=== PATIENT | female | born 1945 | race Caucasian/White ===

== ENCOUNTER 2020-09-11 14:10 | Emergency (ER) | payer OTHER ==
[2020-09-11 14:26] VITALS: BP 178/89; PULSE 71; TEMP 97.7; BMI 23.7
[2020-09-11] MEDS ORDERED: SODIUM CHLORIDE 1,000 ML IV SCH (15:45)
[2020-09-11 16:23] LABS: BASO % 1.9 % (0-2.0); HEMATOCRIT 38.4 % (32.4-45.2); HEMOGLOBIN 12.4 GM/dL (10.7-15.3); LYMPH % 30.2 % (8-40); MCH 30.5 pg (25.7-33.7); MCHC 32.3 g/dl (32.0-36.0); MEAN CELL VOLUME 94.4 fl (80-96); MEAN PLT VOLUME 9.9 fl (7.5-11.1); MONO % 5.9 % (3.8-10.2); PLATELET COUNT 274 K/MM3 (134-434); RBC 4.07 M/mm3 (3.60-5.2); RDW 13.6 % (11.6-15.6); WHITE BLOOD COUNT 8.5 K/mm3 (4.0-10.0)
[2020-09-11 16:30] LABS: INR 1.08 (0.83-1.09)
[2020-09-11 16:33] LABS: ACTIVATED PTT 31.6 SECONDS (25.2-36.5)
[2020-09-11 16:47] LABS: CHLORIDE 98 mmol/L (98-107); POTASSIUM 4.2 mmol/L (3.5-5.1); SODIUM 135 mmol/L (136-145)
[2020-09-11 16:50] LABS: ALBUMIN 4.3 g/dl (3.4-5.0); ANION GAP 7 MMOL/L (8-16); BLOOD UREA NITROGEN 11.1 mg/dL (7-18); CALCIUM 9.6 mg/dL (8.5-10.1); CO2 30 mmol/L (21-32); GLUCOSE,RANDOM 84 mg/dL (74-106)
[2020-09-11] MEDS ORDERED: FLUORESCEIN NA 1 EA STRIP OD ONE (16:52)
[2020-09-11] MEDS ORDERED: TETRACAINE 0.5% HCL 0.6ML DROPPER.BOTTLE OD ONE (16:52)
[2020-09-11 16:53] LABS: CHOLESTEROL 149 mg/dL (50-200); CREATININE 0.5 mg/dL (0.55-1.3); SGOT/AST 20 U/L (15-37); SGPT/ALT 22 U/L (13-61)
[2020-09-11 16:54] LABS: BILIRUBIN,TOTAL 0.4 mg/dL (0.2-1); LDL CHOLESTEROL (ONLY SJRH) 69 mg/dL (5-100); TRIGLYCERIDES 144 mg/dL (0-150)
[2020-09-11] MEDS ORDERED: FLUORESCEIN NA 1 EA STRIP ONE (16:54)
[2020-09-11] MEDS ORDERED: TETRACAINE 0.5% OPHTH SOLN 2 ML BOTTLE ONE (16:54)
[2020-09-11 16:55] LABS: ALK PHOS 71 U/L (45-117); TOT PROT 8.4 g/dl (6.4-8.2)
[2020-09-11 16:56] LABS: HDL CHOLESTEROL 57 mg/dL (40-60)
[2020-09-11 19:54] LABS: URINE APPEARANCE CLEAR; URINE BILIRUBIN NEGATIVE (NEGATIVE); URINE COLOR YELLOW; URINE GLUCOSE (UA) NEGATIVE (NEGATIVE); URINE KETONE NEGATIVE (NEGATIVE); URINE LEUK ESTERASE NEGATIVE (NEGATIVE); URINE NITRITE NEGATIVE (NEGATIVE); URINE PROTEIN NEGATIVE (NEGATIVE); URINE UROBILINOGEN 0.2 mg/dL (0.2-1.0)
[2020-09-12] MEDS ORDERED: predniSONE 20 MG TABLET (UD) PO ONE (10:19)
== END 2020-09-11 17:56 | disposition home or self-care (01) ==
LOC: JER 14:10
DX: B02.21 Postherpetic geniculate ganglionitis (principal)
CPT/HCPCS: 36415; 70450-TC; 80053; 80061; 81003; 82550; 83721; 84484; 85025; 85610; 85730; 86850; 86900; 86901; 93005; 93010; 99285-25

== ENCOUNTER 2021-05-15 11:18 | Day surgery (SDC) | payer OTHER ==
[2021-05-15] MEDS: CELECOXIB 200 MG CAPSULE PO ONE ×2 (07:25→16:39)
[2021-05-15 08:18] VITALS: BMI 23.8
[~2021-05-15 11:18] MED LIST: BUPIVACAINE HCL/PF 0.5% (5 MG/ML) 30 ML VIAL IJ ONE; BUPIVACAINE HCL/PF 0.5% (5MG/ML) 10 ML VIAL ONE; CEFAZOLIN 2 GM in DEXTROSE 5%-WATER - 50 ML IVPB ONE; DEXAMETHASONE SOD PHOSPHATE 10 MG/1 ML VIAL ONE; DEXAMETHASONE SOD PHOSPHATE 4 MG/1 ML VIAL ONE; GLYCOPYRROLATE 0.2 MG/1 ML VIAL ONE; LACTATED RINGERS SOLUTION 1,000 ML IV SCH; MAG HYDROX/AL HYDROX/SIMETH 30 ML UNIT-DOSE CUP PO PRN; MAGNESIUM HYDROX 2400MG/30ML ORAL SUSPENSION 30 ML CUP PO PRN; MIDAZOLAM HCL 2 MG/2 ML SINGLE DOSE VIAL ONE; ONDANSETRON 4 MG/2 ML VIAL IVPUSH PRN; PROPOFOL 20 ML ONE; TRANEXAMIC ACID 1000 MG/10 ML VIAL IVPUSH ONE; VANCOMYCIN 1,000 MG VIAL (RESTRICTED TO ID ONLY) ONE; ZOLPIDEM TARTRATE 5 MG TABLET PO PRN; ceFAZolin SODIUM 1 GM VIAL ONE; ePHEDrine SULFATE 50 MG/1 ML AMPULE ONE
[2021-05-15] MEDS ORDERED: oxyCODONE HCL 5 MG TABLET PO PRN (11:35)
[2021-05-15] MEDS ORDERED: ONDANSETRON 4 MG/2 ML VIAL IVPUSH PRN (11:35)
[2021-05-15] MEDS ORDERED: ACETAMINOPHEN 1000 MG/100 ML VIAL (NON FORMULARY) IVPB ONE (11:35)
[2021-05-15] MEDS ORDERED: LACTATED RINGERS SOLUTION 1,000 ML IV SCH (11:45)
[2021-05-15] MEDS: CEFAZOLIN 2 GM/D5W 2 GM/50 ML ML IVPB SCH (17:39)
[2021-05-15] MEDS: SENNOSIDES/DOCUSATE COMBO (SENNA PLUS) TABLET (UD) PO SCH (21:06)
[2021-05-15] MEDS: oxyCODONE HCL 10 MG SUSTAINED ACTING TABLET PO SCH (21:07)
[2021-05-16] MEDS: CEFAZOLIN 2 GM/D5W 2 GM/50 ML ML IVPB SCH ×2 (01:33→10:20)
[2021-05-16 08:04] LABS: HEMOGLOBIN 9.6 GM/dl (10.7-15.3); MCH 31.9 pg (25.7-33.7); MCHC 34.3 g/dl (32.0-36.0); MEAN CELL VOLUME 93.1 fl (80-96); MEAN PLT VOLUME 9.8 fl (7.5-11.1); PLATELET COUNT 185 10^3/uL (134-434); RBC 3.01 M/mm3 (3.60-5.2); RDW 13.1 % (11.6-15.6); WHITE BLOOD COUNT 10.8 K/mm3 (4.0-10.8)
[2021-05-16] MEDS ORDERED: BENZOCAINE/MENTH/CETYLPYRD CL 1 EACH LOZENGE MM PRN (08:12)
[2021-05-16] MEDS: metoPROLOL SUCCINATE 25 MG TAB.SR.24H (FP) PO SCH (10:15)
[2021-05-16] MEDS: MULTIVITAMINS (DAILY MVI) TABLET (FP) PO SCH (10:15)
[2021-05-16] MEDS: SENNOSIDES/DOCUSATE COMBO (SENNA PLUS) TABLET (UD) PO SCH ×2 (10:15→21:40)
[2021-05-16] MEDS: oxyCODONE HCL 10 MG SUSTAINED ACTING TABLET PO SCH ×2 (10:16→21:41)
[2021-05-16] MEDS: PANTOPRAZOLE 40 MG TABLET PO SCH (10:16)
[2021-05-16] MEDS: oxyCODONE HCL 5 MG TABLET PO PRN ×2 (13:49→17:53)
[2021-05-16] MEDS ORDERED: RIVAROXABAN 20 MG TABLET PO SCH (22:00)
[2021-05-17] MEDS: oxyCODONE HCL 5 MG TABLET PO PRN ×2 (06:15→08:44)
[2021-05-17 08:06] LABS: HEMOGLOBIN 9.6 GM/dl (10.7-15.3); MCH 31.9 pg (25.7-33.7); MEAN CELL VOLUME 96.6 fl (80-96); MEAN PLT VOLUME 10.1 fl (7.5-11.1); PLATELET COUNT 192 10^3/uL (134-434); WHITE BLOOD COUNT 10.1 K/mm3 (4.0-10.8)
[2021-05-17] MEDS: SENNOSIDES/DOCUSATE COMBO (SENNA PLUS) TABLET (UD) PO SCH (09:14)
[2021-05-17] MEDS: MULTIVITAMINS (DAILY MVI) TABLET (FP) PO SCH (09:15)
[2021-05-17] MEDS: metoPROLOL SUCCINATE 25 MG TAB.SR.24H (FP) PO SCH (09:15)
[2021-05-17] MEDS: PANTOPRAZOLE 40 MG TABLET PO SCH (09:15)
[2021-05-17 09:20] VITALS: BP 106/55; PULSE 76; TEMP 98
== END 2021-05-17 11:42 | disposition home health service (06) ==
LOC: FASUSAT 11:18 → FM/S 13:52 → UNDOADMIN 13:52 → FM/S 22:06 → FASUSAT 05-17 11:42
PROVIDERS: ATTEND Orthopaedic Surgery
PROC: 8E0W0CZ Robotic Assisted Procedure of Trunk Region, Open Approach (ICD-10-PCS; 2021-05-15)
PROC: 0SR9019 Replacement of Right Hip Joint with Metal Synthetic Substitute, Cemented, Open Approach (ICD-10-PCS; principal; 2021-05-15 10:19)
DX: M16.11 Unilateral primary osteoarthritis, right hip (principal)
CPT/HCPCS: 27130; C1776; S2900; 36415; 73502-TC-RT-FY; 85027; 94760; 97010-GP; 97116-GP; 97163-GP; J0131; J1100

== ENCOUNTER 2021-08-03 04:44 | Day surgery (SDC) | payer OTHER ==
[2021-08-02 08:59] VITALS: BMI 23.3
[2021-08-03] MEDS ORDERED: ACETAMINOPHEN INJECTION 100 ML IVPB ONE (07:10)
[2021-08-03] MEDS ORDERED: DEXMEDETOMIDINE HCL 200 MCG/2 ML IVPB ONE (07:10)
[2021-08-03] MEDS ORDERED: ROCURONIUM BROMIDE 50 MG/5 ML SYRINGE ONE (07:28)
[2021-08-03] MEDS ORDERED: KETAMINE HCL 200 MG/20 ML VIAL ONE (07:28)
[2021-08-03] MEDS ORDERED: fentaNYL CITRATE 250 MCG/5 ML VIAL ONE (07:29)
[2021-08-03] MEDS ORDERED: PROPOFOL 20 ML ONE ×2 (07:29)
[2021-08-03] MEDS ORDERED: BUPIVACAINE LIPOSOME/PF (EXPAREL) 266 MG/20 ML VIAL ONE (07:30)
[2021-08-03] MEDS ORDERED: BUPIVACAINE HCL/PF 0.5% (5MG/ML) 10 ML VIAL ONE (07:30)
[2021-08-03] MEDS ORDERED: MIDAZOLAM HCL 2 MG/2 ML SINGLE DOSE VIAL ONE ×2 (07:32)
[2021-08-03] MEDS ORDERED: ceFAZolin SODIUM 1 GM VIAL IVPB ONE (09:11)
[2021-08-03] MEDS ORDERED: NEOSTIGMINE METHYLSULFATE 0.5 MG/ML - 10 ML MDV ONE (09:26)
[2021-08-03] MEDS ORDERED: LIDOCAINE HCL/PF 2% SDV 5ML VIAL ONE (09:55)
[2021-08-03 17:11] VITALS: BP 143/83; PULSE 60; TEMP 97
== END 2021-08-03 17:11 | disposition home or self-care (01) ==
LOC: JASU-SURG 04:44
PROVIDERS: ATTEND Surgery
PROC: 0YQA4ZZ Repair Bilateral Inguinal Region, Percutaneous Endoscopic Approach (ICD-10-PCS; principal; 2021-08-03 08:00)
DX: K40.20 Bilateral inguinal hernia, without obstruction or gangrene, not specified as recurrent (principal)
CPT/HCPCS: 94760; J0131

== ENCOUNTER 2021-09-16 13:53 | Emergency (ER) | payer OTHER ==
[2021-09-16 14:10] VITALS: BP 132/72; PULSE 61; TEMP 97; BMI 23.3
[2021-09-16] MEDS ORDERED: KETOROLAC TROMETHAMINE 15 MG/ML VIAL IVPUSH ONE (14:40)
[2021-09-16] MEDS ORDERED: SODIUM CHLORIDE 1,000 ML IV SCH (14:45)
[2021-09-16 15:16] LABS: BASO % 0.6 % (0-2.0); EOS % 1.1 % (0-4.5); HEMATOCRIT 34.9 % (32.4-45.2); HEMOGLOBIN 11.7 GM/dL (10.7-15.3); LYMPH % 23.3 % (8-40); MCH 29.9 pg (25.7-33.7); MCHC 33.4 g/dl (32.0-36.0); MEAN CELL VOLUME 89.5 fl (80-96); MEAN PLT VOLUME 8.9 fl (7.5-11.1); MONO % 6.6 % (3.8-10.2); NEUT % 68.4 % (42.8-82.8); PLATELET COUNT 242 10^3/uL (134-434); RDW 15.5 % (11.6-15.6); WHITE BLOOD COUNT 8.7 K/mm3 (4.0-10.0)
[2021-09-16 15:35] LABS: CHLORIDE 104 mmol/L (98-107); SODIUM 138 mmol/L (136-145)
[2021-09-16 15:37] LABS: ALBUMIN 3.6 g/dl (3.4-5.0); ANION GAP 4 MMOL/L (8-16); BLOOD UREA NITROGEN 14.6 mg/dL (7-18); CO2 31 mmol/L (21-32); LIPASE 191 U/L (73-393)
[2021-09-16] MEDS ORDERED: KETOROLAC TROMETHAMINE 15 MG/ML VIAL ONE (15:37)
[2021-09-16 15:40] LABS: CREATININE 0.5 mg/dL (0.55-1.3); SGPT/ALT 24 U/L (13-61)
[2021-09-16 15:41] LABS: SGOT/AST 19 U/L (15-37)
[2021-09-16 15:42] LABS: BILIRUBIN,TOTAL 0.3 mg/dL (0.2-1); TOT PROT 7.5 g/dl (6.4-8.2)
[2021-09-16 15:43] LABS: ALK PHOS 70 U/L (45-117)
[2021-09-16 15:51] LABS: GLUCOSE,RANDOM 104 mg/dL (74-106)
[2021-09-16 16:53] LABS: URINE APPEARANCE CLEAR; URINE BILIRUBIN NEGATIVE (NEGATIVE); URINE COLOR YELLOW; URINE GLUCOSE (UA) NEGATIVE (NEGATIVE); URINE KETONE NEGATIVE (NEGATIVE); URINE LEUK ESTERASE NEGATIVE (NEGATIVE); URINE NITRITE NEGATIVE (NEGATIVE); URINE PROTEIN NEGATIVE (NEGATIVE); URINE UROBILINOGEN 0.2 mg/dL (0.2-1.0)
== END 2021-09-16 20:45 | disposition home or self-care (01) ==
LOC: JER 13:53
PROC: 3E033GC Introduction of Other Therapeutic Substance into Peripheral Vein, Percutaneous Approach (ICD-10-PCS; principal; 2021-09-16)
DX: R10.32 Left lower quadrant pain (principal)
CPT/HCPCS: 36415; 71046-TC-FY; 74177-TC; 80053; 81003; 82550; 83690; 84484; 85025; 87086; 93005; 93010; 99285-25; Q9967

== ENCOUNTER 2023-08-26 06:54 | Day surgery (SDC) | payer OTHER ==
[2023-08-20 16:13] VITALS: BMI 23.8
[2023-08-26] MEDS ORDERED: LIDOCAINE HCL/PF 2% SDV 5ML VIAL ONE (08:15)
[2023-08-26] MEDS ORDERED: PROPOFOL 100 ML ONE (08:16)
[2023-08-26] MEDS ORDERED: MIDAZOLAM HCL 2 MG/2 ML SINGLE DOSE VIAL ONE (08:16)
[2023-08-26] MEDS ORDERED: ACETAMINOPHEN INJECTION 100 ML IVPB ONE (08:24)
[2023-08-26] MEDS ORDERED: ROPIVACAINE HCL 0.5% 30ML VIAL ONE (08:24)
[2023-08-26] MEDS ORDERED: CEFAZOLIN 2 GM in DEXTROSE 5%-WATER - 50 ML IVPB ONE (08:30)
[2023-08-26] MEDS ORDERED: TRANEXAMIC ACID 1000 MG/10 ML VIAL IVPUSH ONE (08:30)
[2023-08-26] MEDS ORDERED: ceFAZolin SODIUM 1 GM VIAL ONE (08:41)
[2023-08-26] MEDS ORDERED: VANCOMYCIN 1,000 MG VIAL (RESTRICTED TO ID ONLY) ONE (08:41)
[2023-08-26] MEDS ORDERED: ZOLPIDEM TARTRATE 5 MG TABLET PO PRN (09:42)
[2023-08-26] MEDS ORDERED: MAG HYDROX/AL HYDROX/SIMETH 30 ML UNIT-DOSE CUP PO PRN (09:42)
[2023-08-26] MEDS ORDERED: ONDANSETRON 4 MG/2 ML VIAL IVPUSH PRN (09:42)
[2023-08-26] MEDS ORDERED: LACTATED RINGERS SOLUTION 1,000 ML IV SCH (09:45)
[2023-08-26] MEDS ORDERED: TRANEXAMIC ACID 1000 MG/10 ML VIAL ONE (09:46)
[2023-08-26] MEDS ORDERED: DEXAMETHASONE SOD PHOSPHATE 4 MG/1 ML VIAL ONE (10:41)
[2023-08-26] MEDS ORDERED: ONDANSETRON 4 MG/2 ML VIAL ONE (10:41)
[2023-08-26] MEDS ORDERED: KETOROLAC TROMETHAMINE 30 MG/1 ML VIAL ONE (10:41)
[2023-08-26] MEDS ORDERED: oxyCODONE HCL 5 MG TABLET PO PRN ×2 (11:08)
[2023-08-26] MEDS: ACETAMINOPHEN 500 MG TABLET (FP) PO SCH ×2 (15:08→20:38)
[2023-08-26] MEDS: FERROUS SO4 325 MG TABLET (FP) PO SCH (15:34)
[2023-08-26] MEDS: MULTIVITAMINS (DAILY MVI) TABLET (FP) PO SCH (15:35)
[2023-08-26] MEDS: PANTOPRAZOLE 40 MG TABLET PO SCH (15:35)
[2023-08-26] MEDS: CEFAZOLIN SODIUM 2 GM in DEXTROSE 5%-WATER 100 ML IVPB SCH (20:06)
[2023-08-26] MEDS: DRONEDARONE HCL 400 MG TAB (FP) PO SCH (21:56)
[2023-08-26] MEDS: SENNOSIDES/DOCUSATE COMBO (SENNA PLUS) TABLET (UD) PO SCH (21:57)
[2023-08-27 01:55] VITALS: RESP 18
[2023-08-27] MEDS: CEFAZOLIN SODIUM 2 GM in DEXTROSE 5%-WATER 100 ML IVPB SCH (02:19)
[2023-08-27] MEDS: ACETAMINOPHEN 500 MG TABLET (FP) PO SCH ×3 (06:25→15:11)
[2023-08-27 08:06] LABS: HEMATOCRIT 30.6 % (32.4-45.2); HEMOGLOBIN 9.8 G/dL (10.7-15.3); MEAN CELL VOLUME 97.1 fl (80-96); MEAN PLT VOLUME 9.7 fl (7.5-11.1); PLATELET COUNT 226.4 10^3/uL (134-434); RBC 3.15 10^6/uL (3.60-5.2); WHITE BLOOD COUNT 8.9 10^3/uL (4.0-10.8)
[2023-08-27 08:38] LABS: CALCIUM 8.8 mg/dl (8.5-10.1); CREATININE 0.5 mg/dl (0.6-1.3); MAGNESIUM 1.8 mg/dL (1.8-2.4); POTASSIUM 4.3 mmol/L (3.5-5.1)
[2023-08-27] MEDS: MULTIVITAMINS (DAILY MVI) TABLET (FP) PO SCH (09:05)
[2023-08-27] MEDS: PANTOPRAZOLE 40 MG TABLET PO SCH (09:05)
[2023-08-27] MEDS: DRONEDARONE HCL 400 MG TAB (FP) PO SCH (09:05)
[2023-08-27] MEDS: SENNOSIDES/DOCUSATE COMBO (SENNA PLUS) TABLET (UD) PO SCH (09:05)
[2023-08-27] MEDS: FERROUS SO4 325 MG TABLET (FP) PO SCH (09:05)
[2023-08-27] MEDS ORDERED: metoPROLOL SUCCINATE 25 MG TAB.SR.24H (FP) PO SCH (10:00)
[2023-08-27 14:27] VITALS: BP 112/70; PULSE 61; TEMP 98
[2023-08-27] MEDS ORDERED: RIVAROXABAN 20 MG TABLET PO SCH (22:00)
== END 2023-08-27 16:00 | disposition home or self-care (01) ==
LOC: FASUSAT 06:54 → FM/S 12:46 → FASUSAT 08-27 16:00
PROVIDERS: ATTEND Orthopaedic Surgery
PROC: 8E0Y0CZ Robotic Assisted Procedure of Lower Extremity, Open Approach (ICD-10-PCS; 2023-08-26)
PROC: 0SRB01A Replacement of Left Hip Joint with Metal Synthetic Substitute, Uncemented, Open Approach (ICD-10-PCS; principal; 2023-08-26 09:55)
DX: M16.12 Unilateral primary osteoarthritis, left hip (principal)
CPT/HCPCS: 20985; 27130; C1776; S2900; 36415; 73502-TC-LT-FY; 80048; 83735; 85027; 94760; 97010-GP; 97116-GP; 97161-GP; C1713

== ENCOUNTER 2024-01-14 14:46 | Emergency (ER) | payer OTHER ==
[2024-01-14 14:50] VITALS: BMI 25.7
[2024-01-14 15:27] VITALS: TEMP 98.2
[2024-01-14] MEDS: SODIUM CHLORIDE 0.9% 500 ML INFUS.BAG IV ONE (16:30)
[2024-01-14 16:36] LABS: BASO % 0.4 % (0-2.0); EOS % 0.9 % (0-4.5); HEMATOCRIT 36.3 % (32.4-45.2); LYMPH % 16.3 % (8-40); MCHC 32.9 g/dl (32.0-36.0); MEAN CELL VOLUME 91.1 fl (80-96); MONO % 8.5 % (3.8-10.2); NEUT % 73.9 % (42.8-82.8); PLATELET COUNT 257 10^3/uL (134-434); RBC 3.99 M/mm3 (3.60-5.2); RDW 14.9 % (11.6-15.6); URINE APPEARANCE CLEAR; URINE BILIRUBIN NEGATIVE (NEGATIVE); URINE COLOR YELLOW; URINE GLUCOSE (UA) NEGATIVE (NEGATIVE); URINE KETONE NEGATIVE (NEGATIVE); URINE LEUK ESTERASE NEGATIVE (NEGATIVE); URINE NITRITE NEGATIVE (NEGATIVE); URINE PROTEIN NEGATIVE (NEGATIVE); URINE UROBILINOGEN 0.2 mg/dL (0.2-1.0); WHITE BLOOD COUNT 13.1 K/mm3 (4.0-10.0)
[2024-01-14 16:43] LABS: INR 1.49 (0.83-1.09); PROTHROMBIN TIME (PATIENT) 17.2 SEC (9.7-13.0)
[2024-01-14 16:45] LABS: ACTIVATED PTT 35.4 SECONDS (25.2-36.5)
[2024-01-14 16:54] LABS: POTASSIUM 4.2 mmol/L (3.5-5.1)
[2024-01-14 16:57] LABS: ALBUMIN 3.4 g/dl (3.4-5.0); BLOOD UREA NITROGEN 19.8 mg/dL (7-18); CALCIUM 9.4 mg/dL (8.5-10.1)
[2024-01-14 17:01] LABS: CREATININE 0.6 mg/dL (0.55-1.3)
[2024-01-14 17:02] LABS: BILIRUBIN,TOTAL 0.5 mg/dL (0.2-1); TOT PROT 7.5 g/dl (6.4-8.2)
[2024-01-14 17:29] LABS: N-TERMINAL BNP 885.1 pg/ml (5-450)
[2024-01-14] MEDS ORDERED: FAMOTIDINE 20 MG/50 ML IVPB 20 MG/50 ML MG IVPB ONE (17:37)
[2024-01-14] MEDS ORDERED: ACETAMINOPHEN INJECTION 100 ML IVPB ONE (17:37)
[2024-01-14] MEDS: ACETAMINOPHEN 1000 MG/100 ML BAG IVPB ONE (17:42)
[2024-01-14] MEDS: FAMOTIDINE 20 MG/50 ML IVPB 20 MG/50 ML MG IVPB ONE (17:42)
[2024-01-14] MEDS: PANTOPRAZOLE SODIUM 40 MG VIAL IVPUSH ONE (17:50)
[2024-01-14] MEDS: LIDOCAINE VISCOUS 2% ORAL/TOP 100 ML BOTTLE MM ONE (17:50)
[2024-01-14 18:05] LABS: MAGNESIUM 2.1 mg/dL (1.8-2.4)
[2024-01-14 18:08] LABS: PHOSPHOROUS 4.8 mg/dL (2.5-4.9)
[2024-01-14] MEDS ORDERED: SUCRALFATE 1 GM TABLET (FP) ONE (19:56)
[2024-01-14] MEDS: SUCRALFATE 1 GM/10 ML UNIT DOSE CUPS PO ONE (20:00)
[2024-01-14 20:13] VITALS: BP 138/68; PULSE 60; RESP 17
== END 2024-01-14 20:38 | disposition home or self-care (01) ==
LOC: JER 14:46
PROC: 3E033GC Introduction of Other Therapeutic Substance into Peripheral Vein, Percutaneous Approach (ICD-10-PCS; principal; 2024-01-14)
PROC: 3E030NZ Introduction of Analgesics, Hypnotics, Sedatives into Peripheral Vein, Open Approach (ICD-10-PCS; 2024-01-14)
DX: R10.31 Right lower quadrant pain (principal); R10.32 Left lower quadrant pain; R10.13 Epigastric pain; R05.9 Cough, unspecified; Z20.822 Contact with and (suspected) exposure to COVID-19
CPT/HCPCS: 0241U-QW; 36415; 71045-TC-FY; 74177-TC; 80053; 81003; 83605; 83690; 83735; 83880; 84100; 84484; 85025; 85610; 85730; 87086; 93005; 93010; 99285-25; J0131; Q9967

== ENCOUNTER 2024-01-15 18:32 | Observation (INO) | payer OTHER ==
[2024-01-15] MEDS: SODIUM CHLORIDE 0.9% 500 ML INFUS.BAG IV ONE (20:45)
[2024-01-15 20:57] LABS: HEMATOCRIT 34.6 % (32.4-45.2); HEMOGLOBIN 11.6 G/dL (10.7-15.3); MCH 30.7 pg (25.7-33.7); MCHC 33.4 g/dl (32.0-36.0); MEAN CELL VOLUME 92.1 fl (80-96); MEAN PLT VOLUME 9.3 fl (7.5-11.1); PLATELET COUNT 232.2 10^3/uL (134-434); RBC 3.76 10^6/uL (3.60-5.2); WHITE BLOOD COUNT 8.9 10^3/uL (4.0-10.8)
[2024-01-15 21:19] LABS: BILIRUBIN,TOTAL 0.4 mg/dl (0.2-1); CALCIUM 9.2 mg/dl (8.5-10.1); CREATININE 0.5 mg/dl (0.6-1.3); PHOSPHOROUS 3.4 (2.5-4.9); POTASSIUM 4.1 mmol/L (3.5-5.1); TOT PROT 7.6 g/dl (6.4-8.2)
[2024-01-15] MEDS: PIPERACILLIN/TAZOB 4.5 GM 4.5 GM in DEXTROSE 5%-WATER 100 ML IVPB ONE (21:52)
[2024-01-15] MEDS ORDERED: ACETAMINOPHEN 325 MG TABLET (FP) PO PRN (23:58)
[2024-01-15] MEDS ORDERED: DOCUSATE SODIUM 100 MG CAPSULE (FP) PO PRN (23:58)
[2024-01-16] MEDS ORDERED: ACETAMINOPHEN 1000 MG/100 ML BAG IVPB PRN ×2 (00:05→07:53)
[2024-01-16 00:35] VITALS: BMI 24.0
[2024-01-16] MEDS ORDERED: FAMOTIDINE 20 MG TABLET PO PRN (01:23)
[2024-01-16] MEDS: PIPERACILLIN/TAZOB 3.375 GM 3.375 GM in DEXTROSE 5%-WATER - 50 ML IVPB SCH ×2 (03:32→10:46)
[2024-01-16] MEDS: CEFTRIAXONE 1 GM in DEXTROSE 5%-WATER - 50 ML IVPB SCH (09:53)
[2024-01-16] MEDS: metoPROLOL SUCCINATE 25 MG TAB.SR.24H (FP) PO SCH (09:53)
[2024-01-16] MEDS: TIOTROPIUM BROMIDE 2.5 MCG (SPIRIVA) RESPIMAT INHALER IH SCH (09:55)
[2024-01-16 13:43] LABS: CALCIUM 8.7 mg/dl (8.5-10.1); CREATININE 0.5 mg/dl (0.6-1.3); MAGNESIUM 1.9 mg/dL (1.8-2.4); PHOSPHOROUS 3.6 (2.5-4.9); POTASSIUM 4.1 mmol/L (3.5-5.1)
[2024-01-16 14:16] LABS: BASO % 0.6 % (0-2.0); EOS % 2.3 % (0-4.5); HEMATOCRIT 33.5 % (32.4-45.2); HEMOGLOBIN 11.1 GM/dL (10.7-15.3); LYMPH % 20.3 % (8-40); MCH 30.2 pg (25.7-33.7); MEAN CELL VOLUME 91.3 fl (80-96); MEAN PLT VOLUME 9.5 fl (7.5-11.1); NEUT % 69.8 % (42.8-82.8); PLATELET COUNT 243 10^3/uL (134-434); RBC 3.67 M/mm3 (3.60-5.2); RDW 14.4 % (11.6-15.6); WHITE BLOOD COUNT 6.4 K/mm3 (4.0-10.0)
[2024-01-16] MEDS ORDERED: RIVAROXABAN 20 MG TABLET PO SCH (18:00)
[2024-01-16 22:38] VITALS: RESP 18; TEMP 97.9
[2024-01-16] MEDS ORDERED: ACETAMINOPHEN 325 MG TABLET (FP) PO PRN (23:58)
[2024-01-17] MEDS ORDERED: ACETAMINOPHEN 1000 MG/100 ML BAG IVPB PRN (07:50)
[2024-01-17 08:44] LABS: HEMATOCRIT 36.1 % (32.4-45.2); HEMOGLOBIN 11.9 G/dL (10.7-15.3); MCH 30.6 pg (25.7-33.7); MCHC 32.9 g/dl (32.0-36.0); MEAN PLT VOLUME 9.9 fl (7.5-11.1); PLATELET COUNT 240.4 10^3/uL (134-434); RBC 3.88 10^6/uL (3.60-5.2); RDW 15.2 % (11.6-15.6); WHITE BLOOD COUNT 6.1 10^3/uL (4.0-10.8)
[2024-01-17 09:29] VITALS: BP 130/75; PULSE 61
[2024-01-17 09:38] LABS: ALBUMIN 3.8 g/dl (3.4-5.0); BILIRUBIN,TOTAL 0.5 mg/dl (0.2-1); CALCIUM 9.1 mg/dl (8.5-10.1); CREATININE 0.5 mg/dl (0.6-1.3); POTASSIUM 4.6 mmol/L (3.5-5.1); TOT PROT 7.1 g/dl (6.4-8.2)
[2024-01-17] MEDS ORDERED: RIVAROXABAN 20 MG TABLET PO SCH (22:00)
== END 2024-01-17 13:14 | disposition home or self-care (01) ==
LOC: FER 18:32 → FM/S 01-16 00:10
PROVIDERS: ADMIT Internal Medicine; ATTEND Internal Medicine
PROC: 3E03329 Introduction of Other Anti-infective into Peripheral Vein, Percutaneous Approach (ICD-10-PCS; principal; 2024-01-16)
PROC: 3E0337Z Introduction of Electrolytic and Water Balance Substance into Peripheral Vein, Percutaneous Approach (ICD-10-PCS; 2024-01-16)
DX: K57.32 Diverticulitis of large intestine without perforation or abscess without bleeding (principal); J84.10 Pulmonary fibrosis, unspecified; J84.9 Interstitial pulmonary disease, unspecified; G47.33 Obstructive sleep apnea (adult) (pediatric); Z99.81 Dependence on supplemental oxygen; Z96.643 Presence of artificial hip joint, bilateral; I48.91 Unspecified atrial fibrillation; E78.5 Hyperlipidemia, unspecified; Z86.79 Personal history of other diseases of the circulatory system; Z79.01 Long term (current) use of anticoagulants
CPT/HCPCS: 36415; 71045-TC-FY; 71250-TC; 80048; 80053; 82378; 82550; 83605; 83735; 84100; 84484; 85025; 85027; 86301; 86304; 87040; 93005; 94660; 96365; 96366; 96367; 96368; 97116-GP; 97161-GP; 99285-25; G0378